=== PATIENT | female | born 1955 | race Two or more races ===

== ENCOUNTER 2023-02-17 18:24 | Inpatient (IN) | payer MEDICARE, OTHER ==
[~2023-02-17] VITALS: Ht 162.6 cm; Wt 51.7 kg
[2023-02-17 22:00] VITALS: BP 115/59
[2023-02-17] MEDS ORDERED: MORPHINE SULFATE INJ 2 MG/ML DISP.SYRIN IV PRN (22:30)
[2023-02-17] MEDS ORDERED: ONDANSETRON HCL/PF 4 MG/2 ML VIAL IVP PRN (22:30)
[2023-02-17] MEDS ORDERED: ACETAMINOPHEN 325 MG TABLET PO PRN (22:30)
[2023-02-17] MEDS ORDERED: TUBE5VIA2 ID (23:01)
[2023-02-17] MEDS ORDERED: ASCO500C18 PO (23:01)
[2023-02-17] MEDS ORDERED: DOCU-141 PO (23:01)
[2023-02-17] MEDS ORDERED: MULT-754 PO (23:01)
[2023-02-17] MEDS ORDERED: ASPI-1169 PO (23:01)
[2023-02-17] MEDS ORDERED: AMLO5TAB4 PO (23:01)
[2023-02-17] MEDS ORDERED: CHOL100040 PO (23:01)
[2023-02-17] MEDS ORDERED: MELA5TAB PO (23:01)
[2023-02-17] MEDS ORDERED: MAGN400O21 PO (23:01)
[2023-02-17] MEDS ORDERED: ACET325C7 PO (23:01)
[2023-02-17] MEDS ORDERED: HYDR-4076 PO (23:01)
[2023-02-18] VITALS: BP 143/68
[2023-02-18 00:02] LABS: BASOPHILS % (AUTO) 0.3 % (0.0-2.0); EOSINOPHILS % (AUTO) 1.7 % (0.0-6.0); HEMATOCRIT 39 % (33-45); HEMOGLOBIN 12.7 g/dL (11.5-14.8); LYMPHOCYTES # (AUTO) 2.1 K/uL (0.8-4.8); LYMPHOCYTES % (AUTO) 19.3 % (20.0-44.0); MEAN CORPUSCULAR HGB CONC 33 g/dl (31.0-36.0); MEAN CORPUSCULAR VOLUME 88 fL (82-100); MONOCYTES # (AUTO) 0.7 K/uL (0.1-1.30); NEUTROPHILS # (AUTO) 7.8 K/uL (1.8-8.9); NEUTROPHILS % (AUTO) 72.7 % (43.0-81.0); PLATELET COUNT (AUTO) 194 K/uL (150-450); RED BLOOD CELL COUNT(AUTO) 4.42 MIL/uL (4.0-5.2); WHITE BLOOD COUNT (AUTO) 10.8 K/uL (4.3-11.0)
[2023-02-18] MEDS ORDERED: CEFTRIAXONE 1 G in IV D5W 50 ML IV SCH (00:05)
[2023-02-18] MEDS ORDERED: IV NS 0.9% 1,000 ML IV SCH (00:05)
[2023-02-18 00:08] VITALS: BP 111/59
[2023-02-18 00:17] LABS: CALCIUM, SERUM 8.8 mg/dL (8.5-10.1); CREATININE 0.7 mg/dL (0.6-1.3); POTASSIUM 3.9 mmol/L (3.5-5.1)
[2023-02-18 00:23] LABS: ALBUMIN 2.9 g/dL (3.4-5.0); BILIRUBIN,TOTAL 0.5 mg/dL (0.2-1.0); TOTAL PROTEIN, SERUM 6.6 g/dL (6.4-8.2)
[2023-02-18] MEDS: ENOXAPARIN SODIUM 40 MG/0.4 ML DISP.SYRIN SQ SCH ×2 (00:34→21:35)
[2023-02-18 04:00] VITALS: BP 128/71
[2023-02-18 06:21] LABS: BASOPHILS % (AUTO) 0.4 % (0.0-2.0); EOSINOPHILS % (AUTO) 2.7 % (0.0-6.0); HEMATOCRIT 36 % (33-45); HEMOGLOBIN 12.1 g/dL (11.5-14.8); LYMPHOCYTES # (AUTO) 2.1 K/uL (0.8-4.8); LYMPHOCYTES % (AUTO) 23.4 % (20.0-44.0); MEAN CORPUSCULAR HGB CONC 33 g/dl (31.0-36.0); MEAN CORPUSCULAR VOLUME 88 fL (82-100); MONOCYTES # (AUTO) 0.5 K/uL (0.1-1.30); NEUTROPHILS # (AUTO) 6.2 K/uL (1.8-8.9); NEUTROPHILS % (AUTO) 67.5 % (43.0-81.0); PLATELET COUNT (AUTO) 184 K/uL (150-450); RED BLOOD CELL COUNT(AUTO) 4.12 MIL/uL (4.0-5.2); WHITE BLOOD COUNT (AUTO) 9.1 K/uL (4.3-11.0)
[2023-02-18 06:31] LABS: ALBUMIN 2.7 g/dL (3.4-5.0); BILIRUBIN,TOTAL 0.4 mg/dL (0.2-1.0); CALCIUM, SERUM 8.9 mg/dL (8.5-10.1); CREATININE 0.7 mg/dL (0.6-1.3); MAGNESIUM 2.1 mg/dL (1.8-2.4); POTASSIUM 3.8 mmol/L (3.5-5.1); TOTAL PROTEIN, SERUM 6.1 g/dL (6.4-8.2)
[2023-02-18] MEDS: hydrALAZINE HCL 25 MG TABLET PO SCH ×3 (09:19→17:40)
[2023-02-18 09:20] VITALS: BP 126/74
[2023-02-18] MEDS: CHOLECALCIFEROL 1,000 UNIT TABLET (VIT D3) PO SCH (09:23)
[2023-02-18] MEDS: ASPIRIN 81 MG TAB.CHEW PO SCH (09:23)
[2023-02-18] MEDS: AMLODIPINE BESYLATE 5 MG TABLET PO SCH (09:23)
[2023-02-18] MEDS: DOCUSATE SODIUM 100 MG CAPSULE PO SCH ×2 (09:23→17:40)
[2023-02-18] MEDS: IV NS 0.9% 1,000 ML IV PRN (13:14)
[2023-02-18 16:38] VITALS: BP 144/74
[2023-02-18 20:00] VITALS: BP 114/63
[2023-02-18] MEDS: CEFTRIAXONE 1 G in IV D5W 50 ML IV SCH (21:33)
[2023-02-19] VITALS: BP 162/67
[2023-02-19] MEDS: IV NS 0.9% 1,000 ML IV PRN (03:31)
[2023-02-19 08:33] VITALS: BP 142/74
[2023-02-19] MEDS: CHOLECALCIFEROL 1,000 UNIT TABLET (VIT D3) PO SCH (08:52)
[2023-02-19] MEDS: ASPIRIN 81 MG TAB.CHEW PO SCH (08:53)
[2023-02-19] MEDS: hydrALAZINE HCL 25 MG TABLET PO SCH ×3 (08:53→16:38)
[2023-02-19] MEDS: DOCUSATE SODIUM 100 MG CAPSULE PO SCH ×2 (08:53→16:38)
[2023-02-19] MEDS: AMLODIPINE BESYLATE 5 MG TABLET PO SCH (08:54)
[2023-02-19] MEDS ORDERED: MULT-447 PO (10:40)
[2023-02-19] MEDS ORDERED: ASCO500T10 PO (10:40)
[2023-02-19 11:58] VITALS: BP 153/69
[2023-02-19 16:19] VITALS: BP 112/62
[2023-02-19 20:00] VITALS: BP 122/64
[2023-02-19] MEDS: CEFTRIAXONE 1 G in IV D5W 50 ML IV SCH (21:12)
[2023-02-19] MEDS: ENOXAPARIN SODIUM 40 MG/0.4 ML DISP.SYRIN SQ SCH (21:19)
[2023-02-20 04:00] VITALS: BP_SYST 133; BP_SYST 141; BP_SYST 147; BP_DIAS 73; BP_DIAS 81
[2023-02-20 08:00] VITALS: BP 145/78
[2023-02-20] MEDS: ASPIRIN 81 MG TAB.CHEW PO SCH (08:56)
[2023-02-20] MEDS: CHOLECALCIFEROL 1,000 UNIT TABLET (VIT D3) PO SCH (08:56)
[2023-02-20] MEDS: DOCUSATE SODIUM 100 MG CAPSULE PO SCH ×2 (08:56→17:22)
[2023-02-20] MEDS: hydrALAZINE HCL 25 MG TABLET PO SCH ×3 (08:57→17:22)
[2023-02-20] MEDS: AMLODIPINE BESYLATE 5 MG TABLET PO SCH (08:57)
[2023-02-20 16:00] VITALS: BP 118/70
[2023-02-20] MEDS ORDERED: IV NS 0.9% 250 ML IV ONE (17:20)
[2023-02-20] MEDS ORDERED: IOHEXOL-350 100 ML VIAL IV ONE (17:20)
[2023-02-20 20:00] VITALS: BP 145/85
[2023-02-20] MEDS: ENOXAPARIN SODIUM 40 MG/0.4 ML DISP.SYRIN SQ SCH (22:04)
[2023-02-20] MEDS: CEFTRIAXONE 1 G in IV D5W 50 ML IV SCH (22:05)
[2023-02-21 07:00] VITALS: BP 129/72
[2023-02-21] MEDS: ASPIRIN 81 MG TAB.CHEW PO SCH (08:26)
[2023-02-21] MEDS: DOCUSATE SODIUM 100 MG CAPSULE PO SCH ×2 (08:26→16:16)
[2023-02-21] MEDS: AMLODIPINE BESYLATE 5 MG TABLET PO SCH (08:26)
[2023-02-21] MEDS: CHOLECALCIFEROL 1,000 UNIT TABLET (VIT D3) PO SCH (08:26)
[2023-02-21] MEDS: hydrALAZINE HCL 25 MG TABLET PO SCH ×4 (08:27→16:17)
[2023-02-21 16:00] VITALS: BP 123/62
[2023-02-21 20:00] VITALS: BP 151/75
[2023-02-21] MEDS: CEFTRIAXONE 1 G in IV D5W 50 ML IV SCH (22:04)
[2023-02-21] MEDS: ENOXAPARIN SODIUM 40 MG/0.4 ML DISP.SYRIN SQ SCH (22:05)
[2023-02-22] MEDS: AMLODIPINE BESYLATE 5 MG TABLET PO SCH (08:26)
[2023-02-22] MEDS: CHOLECALCIFEROL 1,000 UNIT TABLET (VIT D3) PO SCH (08:26)
[2023-02-22] MEDS: hydrALAZINE HCL 25 MG TABLET PO SCH ×3 (08:26→16:02)
[2023-02-22] MEDS: DOCUSATE SODIUM 100 MG CAPSULE PO SCH ×3 (08:26→16:02)
[2023-02-22] MEDS: ASPIRIN 81 MG TAB.CHEW PO SCH (08:26)
[2023-02-22 08:52] VITALS: BP 114/71
[2023-02-22] MEDS: CLOPIDOGREL BISULFATE 75 MG TABLET PO SCH (12:28)
[2023-02-22 12:54] LABS: CHOLESTEROL 202 mg/dL (<200); HDL CHOLESTEROL 51 mg/dL (40-60); LDL 134 mg/dL (0-99); TRIGLYCERIDES 81 mg/dL (30-150)
[2023-02-22 16:16] VITALS: BP 119/67
[2023-02-22] MEDS: ENSURE ENLIVE CHOC 237 ML CAN PO SCH (16:29)
[2023-02-22 20:00] VITALS: BP 111/62
[2023-02-22] MEDS: ENOXAPARIN SODIUM 40 MG/0.4 ML DISP.SYRIN SQ SCH (21:44)
[2023-02-22] MEDS: CEFTRIAXONE 1 G in IV D5W 50 ML IV SCH (22:34)
[2023-02-23] MEDS: DOCUSATE SODIUM 100 MG CAPSULE PO SCH (08:18)
[2023-02-23] MEDS: ASPIRIN 81 MG TAB.CHEW PO SCH (08:18)
[2023-02-23] MEDS: ENSURE ENLIVE CHOC 237 ML CAN PO SCH (08:18)
[2023-02-23] MEDS: CHOLECALCIFEROL 1,000 UNIT TABLET (VIT D3) PO SCH (08:18)
[2023-02-23] MEDS: CLOPIDOGREL BISULFATE 75 MG TABLET PO SCH (08:19)
[2023-02-23] MEDS: hydrALAZINE HCL 25 MG TABLET PO SCH ×2 (08:20→12:47)
[2023-02-23] MEDS: AMLODIPINE BESYLATE 5 MG TABLET PO SCH (08:21)
[2023-02-23 09:05] VITALS: BP 107/65
[2023-02-23] MEDS ORDERED: ATORVASTATIN 10 MG TABLET PO SCH (22:00)
== END 2023-02-23 14:13 | DRG 690 ==
LOC: TELE 20:49 → MED 02-20 16:34
PROVIDERS: ADMIT Internal Medicine
DX: N39.0 Urinary tract infection, site not specified (principal); E44.1 Mild protein-calorie malnutrition; I69.351 Hemiplegia and hemiparesis following cerebral infarction affecting right dominant side; W19.XXXA Unspecified fall, initial encounter; Y92.9 Unspecified place or not applicable; Z79.02 Long term (current) use of antithrombotics/antiplatelets; I10 Essential (primary) hypertension; E88.09 Other disorders of plasma-protein metabolism, not elsewhere classified; F17.200 Nicotine dependence, unspecified, uncomplicated; I65.21 Occlusion and stenosis of right carotid artery; Z79.82 Long term (current) use of aspirin; Z79.899 Other long term (current) drug therapy
CPT/HCPCS: 36415; 70450-TC; 70496-TC; 70498-TC; 71045-TC; 80053-TC; 80061-TC; 83605-TC; 83735-TC; 84100-TC; 85025-TC; 87040-TC; 87081-TC; 93307-TC; 97112-TC; 97116-TC; 97530-TC; A4223; G0378; J0696; J1650; J7030; J7050; J7060; Q9967